=== PATIENT | male | born 1940 | race Caucasian/White ===

== ENCOUNTER 2020-12-22 06:00 | Outpatient (RCR) | payer MEDICARE, SELFPAY | END 2021-01-17 23:59 | disposition home or self-care (01) | LOC: MPT 06:00 | PROVIDERS: PCP Physician Assistant Medical; Referring Provider Family Medicine; Visit Provider Family Medicine | DX: M25.512 Pain in left shoulder (principal) | CPT/HCPCS: 97110; 97140; 97161; G0283 ==

== ENCOUNTER 2021-01-18 06:00 | Outpatient (RCR) | payer MEDICARE, SELFPAY | END 2021-01-19 23:59 | disposition home or self-care (01) | LOC: MPT 06:00 | PROVIDERS: PCP Physician Assistant Medical; Referring Provider Family Medicine; Visit Provider Family Medicine | DX: M25.512 Pain in left shoulder (principal) | CPT/HCPCS: 97110; G0283 ==

== ENCOUNTER → 2024-02-20 14:56 | Outpatient (BNVA) | payer MEDICARE, SELFPAY | PROVIDERS: PCP Physician Assistant Medical; Visit Provider Nurse Practitioner | DX: M54.9 Dorsalgia, unspecified (principal); N40.0 Benign prostatic hyperplasia without lower urinary tract symptoms | CPT/HCPCS: 81000; 87086 ==

== ENCOUNTER 2024-03-06 13:36 | Outpatient (CLI) | payer MEDICARE, SELFPAY ==
--- NOTE | 2024-03-06 14:30 | US_ITS ---
WS: [id number] ULTRASOUND SOFT TISSUES RIGHT inguinal canal. HISTORY: Pain COMPARISON: None available. TECHNIQUE: 2-D and color Doppler imaging is submitted. Ultrasound directed to the RIGHT inguinal canal. There is a hypoechoic mass in the RIGHT inguinal reg ion measuring 2.1 x 0.6 x 1.5 cm. Low-level echoes within the cystic mass. No additional abnormality. US/US soft tissue/extremity [id number] IMPRESSION: Nonspecific complex cystic mass in the RIGHT groin. This may be an abnormal lym ph node or fluid in the inguinal canal. Recommend follow-up CT pelvis.
== END 2024-03-06 13:37 | disposition home or self-care (01) ==
LOC: RAD 13:38
PROVIDERS: PCP Nurse Practitioner; Visit Provider Nurse Practitioner
DX: R10.31 Right lower quadrant pain (principal); R93.89 Abnormal findings on diagnostic imaging of other specified body structures
CPT/HCPCS: 76882

== ENCOUNTER 2024-03-10 13:45 | Outpatient (CLI) | payer MEDICARE, SELFPAY ==
--- NOTE | 2024-03-10 14:30 | CT_ITS ---
WS: [id number] CT PELVIS WITH CONTRAST HISTORY: RIGHT groin cystic mass. TECHNIQUE: Contiguous imaging is performed of the pelvis with contrast. Coronal and sagittal reformat s are reviewed. All CT scans at [facility] use at least one of these dose optimization techni ques: automated exposure control; mA and/or kV adjustment per patient size (includes targeted exams w here dose is matched to clinical indication); or iterative reconstruction. DLP: 207.55 mGy.cm Omnipaque 100 cc IV. COMPARISON: Soft tissue ultrasound 03/06/2024 Mass previously described in the RIGHT inguinal region corresponds to a well-circumscribed low-attenu ation mass measuring 1.7 x 1.0 x 1.9 cm. This mass is in the inguinal canal adjacent to the spermatic cord. Mass is homogeneous and low-level echoes. Urinary bladder is not distended. Prostate gland is markedly enlarged encroaching into the urinary bl adder. Heterogeneous appearance of the prostate. Marked bladder wall thickening. Small fat-containing umbilical hernia. CT/CT pelvis w con* [id number] IMPRESSION: 1. Well-circumscribed homogeneous mass in the RIGHT inguinal canal measures 1. 7 x 1.0 x 1.9 cm. Hounsfield units are low suggesting this is likely fluid. Thi s may be a small amount of fluid in the inguinal canal. Differential would incl ude a high riding testicle. Correlate that both testicles are within the scrota l sac. 2. No herniation of bowel loops or incarceration of small bowel. 3. Markedly heterogeneous prostate gland with diffuse bladder wall thickening.
[2024-03-10 14:47] LABS: Blood Urea Nitrogen 28 mg/dL (8-23)
[2024-03-10] MEDS: iohexol 350 mg/mL 500 mL Btl (per mL) IV (14:54)
== END 2024-03-10 13:46 | disposition home or self-care (01) ==
LOC: RAD 13:46
PROVIDERS: PCP Nurse Practitioner; Visit Provider Nurse Practitioner
DX: R19.09 Other intra-abdominal and pelvic swelling, mass and lump (principal); N40.0 Benign prostatic hyperplasia without lower urinary tract symptoms; R93.49 Abnormal radiologic findings on diagnostic imaging of other urinary organs; K42.0 Umbilical hernia with obstruction, without gangrene; R93.89 Abnormal findings on diagnostic imaging of other specified body structures
CPT/HCPCS: 72193; 82565; 84520

== ENCOUNTER → 2024-03-17 07:49 | Outpatient (BNVA) | payer MEDICARE, SELFPAY | PROVIDERS: PCP Nurse Practitioner; Referring Provider Nurse Practitioner; Visit Provider Surgery | DX: R19.7 Diarrhea, unspecified (principal); R03.0 Elevated blood-pressure reading, without diagnosis of hypertension | CPT/HCPCS: 82274; 83630; 87177; 87209; 99204 ==

== ENCOUNTER 2024-03-23 07:22 | Outpatient (CLI) | payer MEDICARE, SELFPAY ==
--- NOTE | 2024-03-23 08:00 | MR_ITS ---
WS: [id number] MRI pelvis without gadolinium enhancement. INDICATION: RIGHT groin mass TECHNIQUE: Coronal T1, STIR, axial T1, T2, sagittal T2. FINDINGS: Comparison recent CT and ultrasound. Fat-containing small RIGHT inguinal hernia with ovoid cystic lesion unchanged since the recent studie s. This demonstrates simple fluid signal on this study. Cystic lesion measures approximately 1.5 x 1. 2 cm. This has the appearance of a simple fluid collection or seroma which may be related to prior in guinal hernia repair. Ectopic or undescended testicle are additional considerations if no history of hernia surgery on the RIGHT side. A solid mass such as necrotic lymph node less likely. Enlarged heterogeneous nodular prostate measuring 4.7 x 3.6 cm. Recommend correlation PSA. Mild disc bulging lower lumbar spine. Images degraded by motion. MR/MR pelvis wo con* [id number] IMPRESSION: Some images limited by patient motion. 1. See discussion RIGHT groin mass above 2. Heterogeneous enlarged nodular prostate. Recommend correlation PSA.
== END 2024-03-23 07:23 | disposition home or self-care (01) ==
LOC: RAD 07:26
PROVIDERS: PCP Nurse Practitioner; Visit Provider Surgery
DX: R19.09 Other intra-abdominal and pelvic swelling, mass and lump (principal); N40.0 Benign prostatic hyperplasia without lower urinary tract symptoms; K40.90 Unilateral inguinal hernia, without obstruction or gangrene, not specified as recurrent; M51.369 Other intervertebral disc degeneration, lumbar region without mention of lumbar back pain or lower extremity pain
CPT/HCPCS: 72195

== ENCOUNTER → 2024-03-31 08:27 | Outpatient (BNVA) | payer MEDICARE, SELFPAY | PROVIDERS: PCP Nurse Practitioner; Visit Provider Surgery | DX: Z09 Encounter for follow-up examination after completed treatment for conditions other than malignant neoplasm (principal) | CPT/HCPCS: 99214 ==

== ENCOUNTER → 2024-05-29 14:10 | Outpatient (BNVA) | payer MEDICARE, SELFPAY | PROVIDERS: PCP Nurse Practitioner; Visit Provider Family Medicine | DX: I48.91 Unspecified atrial fibrillation (principal); K21.9 Gastro-esophageal reflux disease without esophagitis | CPT/HCPCS: 80053; 84443; 85025 ==

== ENCOUNTER → 2024-09-01 08:47 | Outpatient (BNVA) | payer MEDICARE, SELFPAY | PROVIDERS: PCP Family Medicine; Visit Provider Podiatrist Foot & Ankle Surgery | DX: M79.671 Pain in right foot (principal); M79.672 Pain in left foot; M19.071 Primary osteoarthritis, right ankle and foot; M19.072 Primary osteoarthritis, left ankle and foot; M25.871 Other specified joint disorders, right ankle and foot; M25.872 Other specified joint disorders, left ankle and foot; M89.8X7 Other specified disorders of bone, ankle and foot | CPT/HCPCS: 73630; 99204 ==